=== PATIENT | female | born 1985 | race Caucasian/White ===

== ENCOUNTER 2020-08-03 10:11 | Outpatient (NON) | payer BC, SELFPAY ==
[2020-08-03 21:14] LABS: SARS-CoV-2 RNA PCR Negative
== END 2020-08-03 10:12 ==
LOC: ANHCOVIDDT 10:12
PROVIDERS: Visit Provider Physician Assistant
DX: R68.89 Other general symptoms and signs (principal); Z20.822 Contact with and (suspected) exposure to COVID-19
CPT/HCPCS: C9803; U0003; U0005

== ENCOUNTER → 2021-04-19 03:01 | Outpatient (CLI) | payer BC, SELFPAY ==
[2021-04-19 16:22] LABS: SARS-CoV-2 RNA PCR Negative
== END ==
PROVIDERS: PCP Internal Medicine; Visit Provider Physician Assistant
DX: R68.89 Other general symptoms and signs (principal); Z20.822 Contact with and (suspected) exposure to COVID-19
CPT/HCPCS: C9803; U0003; U0005

== ENCOUNTER 2021-07-04 11:46 | Outpatient (CLI) | payer BC, SELFPAY ==
[2021-07-04 15:36] LABS: SARS-CoV-2 RNA PCR Negative (Negative)
== END 2021-07-04 11:47 | disposition home or self-care (01) ==
LOC: CHSLAB 11:49
PROVIDERS: Physician Assistant; PCP Internal Medicine; Visit Provider Internal Medicine
DX: Z20.822 Contact with and (suspected) exposure to COVID-19 (principal)
CPT/HCPCS: C9803; U0003; U0005

== ENCOUNTER 2021-09-01 08:59 | Outpatient (RCR) | payer BC, SELFPAY ==
[2021-09-01] MEDS: diphenhydrAMINE HCl CAP 25 MG CAPSULE PO (10:00)
[2021-09-01] MEDS: FAMOTIDINE 20 MG TABLET PO (10:00)
[2021-09-01] MEDS: ACETAMINOPHEN 325 MG TABLET 650 MG PO (10:00)
[2021-09-01 10:03] VITALS: BP 143/95; PULSE 97; TEMP 37.1; O2SAT 99
[2021-09-01 11:33] VITALS: BP 151/93; PULSE 82; O2SAT 99
== END 2021-09-01 16:00 ==
LOC: AMCINF 08:59
PROVIDERS: PCP Internal Medicine; Referring Provider Internal Medicine; Visit Provider Internal Medicine Hematology & Oncology
DX: U07.1 COVID-19 (principal); I10 Essential (primary) hypertension
CPT/HCPCS: A9270; M0247; Q0247

== ENCOUNTER 2022-06-08 13:57 | Outpatient (CLI) | payer OTHER, SELFPAY ==
[2022-06-08 15:33] LABS: Influenza Control Positive
== END 2022-06-08 13:58 | disposition home or self-care (01) ==
PROVIDERS: PCP Internal Medicine; Visit Provider Physician Assistant
DX: R68.89 Other general symptoms and signs (principal)
CPT/HCPCS: 87804

== ENCOUNTER 2023-06-18 14:01 | Outpatient (CLI) | payer OTHER, SELFPAY ==
--- NOTE | ~2023-06-18 | MR_ITS ---
EXAMINATION: MR sacroiliac jts wo/w con DATE: 06/18/2023 14:48 INDICATION: Chronic low back pain. Psoriasis. TECHNIQUE: Magnetic resonance imaging (MRI) of the sacroiliac joints was performed without and with 2 0 mL MultiHance intravenous contrast. COMPARISON: Lumbar spine radiographs 06/18/2023 FINDINGS: There is lumbar levocurvature and moderate spondylosis. No fracture. There is mild osteoart hritis of the sacroiliac joints characterized by tiny osteophytes. IMPRESSION: 1. Mild osteoarthritis of the sacroiliac joints. No evidence of inflammatory arthropathy. Reviewed, dictated and finalized at location A. PRODUCTION COOK IMPRESSION: 1. Mild osteoarthritis of the sacroiliac joints. No evidence of inflammatory ar thropathy.
--- NOTE | ~2023-06-18 | XR_ITS ---
Lumbosacral Spine: AP and lateral views Clinical History: Pain Findings: The normal lordotic curve is maintained. No fracture or subluxation seen. There is moderate degenerative disc narrowing at L3-L4. There is minimal facet arthropathy at the lower lumbar spine. The sacroiliac joints are normally outlined. Impression: Minimal degenerative spondylosis, as above. Reviewed, dictated and finalized at [facility]. [employer] OPERATOR Impression: Minimal degenerative spondylosis, as above.
== END 2023-06-18 14:02 ==
PROVIDERS: PCP Physician Assistant Medical; Visit Provider Physician Assistant Medical
DX: M54.50 Low back pain, unspecified (principal); G89.29 Other chronic pain; M53.3 Sacrococcygeal disorders, not elsewhere classified
CPT/HCPCS: 72100; 72197; A9577

== ENCOUNTER 2024-10-08 15:34 | Outpatient (CLI) | payer OTHER, SELFPAY ==
--- NOTE | ~2024-10-08 | US_ITS ---
EXAMINATION: US pelvic complete INDICATION: Excessive and frequent menstruation Comparison:No prior studies for comparison. TECHNIQUE: Multiple transabdominal and endovaginal sonographic images of the pelvis performed. FINDINGS: The uterus measures 8.8 x 3.9 x 5.3 cm. The endometrial complex measures 1.8 cm. The right ovary measures 3.8 x 2.3 x 2.9 cm and the left ovary measures 3 x 1.6 x 3.5 cm. There are small follicles in each ovary. Normal doppler signal in both ovaries. There is no free fluid in the pelvis. There are no abnormal masses seen on either side. IMPRESSION: 1. Endometrial thickening measuring 1.8 cm. Reviewed, dictated and finalized at location A.
== END 2024-10-08 15:35 | disposition home or self-care (01) ==
LOC: MICIMG 15:36
PROVIDERS: PCP Physician Assistant Medical; Visit Provider Obstetrics & Gynecology
DX: N92.0 Excessive and frequent menstruation with regular cycle (principal)
CPT/HCPCS: 76856